=== PATIENT | female | born 1975 | race Caucasian/White ===

== ENCOUNTER 2018-08-01 17:49 | Emergency (ER) | payer SELFPAY ==
[~2018-08-01] VITALS: Ht 144.8 cm; Wt 79.8 kg
[~2018-08-01 17:49] MED LIST: DOCU240C31 PO; FERR325T18 PO; IBUP-1222 PO; OXYC-302 PO; PREN1TAB62 PO; SIME125C67 PO; ZOLP-413 PO
[2018-08-01] MEDS ORDERED: DIPHENHYDRAMINE 50 MG/ML, 1ML ONE (18:15)
[2018-08-01] MEDS ORDERED: DEXAMETHASONE 4 MG/ML, 1ML ONE (18:15)
[2018-08-01] MEDS ORDERED: METOCLOPRAMIDE 5 MG/ML, 2ML ONE (18:15)
[2018-08-01] MEDS ORDERED: KETOROLAC 30 MG/1 ML ONE (18:15)
[2018-08-01] MEDS ORDERED: KETOROLAC 30 MG/1 ML IVPush ONE (18:30)
[2018-08-01] MEDS ORDERED: DIPHENHYDRAMINE 50 MG/ML, 1ML IVPush ONE (18:30)
[2018-08-01] MEDS ORDERED: DEXAMETHASONE 4 MG/ML, 1ML IVPush ONE (18:30)
[2018-08-01] MEDS ORDERED: METOCLOPRAMIDE 5 MG/ML, 2ML IVPush ONE (18:30)
[2018-08-01] MEDS ORDERED: SODIUM CHLORIDE FLUSH 10ML SYR IVF ONE (18:30)
--- NOTE | 2018-08-01 19:04 | NUR ---
FLOAT RN: PT RESTING IN ROOM. VS STABLE. NO ACUTE DISTRESS NOTED. WILL CONTINUE TO MONITOR WHILE PRIMARY RN IS ON BREAK.
--- NOTE | 2018-08-01 19:20 | NUR ---
DR MARIO HAS UPDATED PATIENT.
[2018-08-01 19:39] VITALS: BP 124/74
== END 2018-08-01 19:42 | disposition home or self-care (01) ==
LOC: ED 18:40
DX: G43.909 Migraine, unspecified, not intractable, without status migrainosus (principal); G51.0 Bell's palsy; H60.12 Cellulitis of left external ear
CPT/HCPCS: 96374; 96375; 99283; J1100; J1200; J1885; J2765

== ENCOUNTER 2021-04-13 16:21 | Emergency (ER) | payer MEDICAID, OTHER ==
[~2021-04-13] VITALS: Ht 144.8 cm; Wt 83.0 kg
[~2021-04-13 16:21] MED LIST changes: -OXYC-302 PO; +OXYC1TAB12 PO
--- NOTE | 2021-04-13 16:27 | NUR ---
CAREER SERVICES COORDINATOR: PT CALLED FOR TRIAGE "SHE WENT TO HER CAR FOR WATER"
--- NOTE | 2021-04-13 16:32 | NUR ---
EKG COMPLETED IN TRIAGE
--- NOTE | 2021-04-13 16:45 | NUR ---
FIRST CONTACT: "SINCE YESTERDAY, FELT LIKE HEART BEATING FAST, I WENT TO WORK, I STILL HAVE IT AND I GOT SHAKY AND I GOT A GUPTA NOW. A WEEK AGO I HAD A COLD" HAD COVID TEST ON (NEGATIVIE). PT ATTACHED TO MONITORS VSS, PT ANXIOUS +VACCINE
[2021-04-13] MEDS ORDERED: LORazepam 1MG TABLET ONE (17:17)
[2021-04-13] MEDS ORDERED: LORazepam 1MG TABLET PO ONE (17:30)
[2021-04-13 17:56] LABS: BASOPHILS % (AUTO) 0 % (0-1); EOSINOPHILS % (AUTO) 2 % (1-7); LYMPHOCYTES % (AUTO) 28 % (22-44); MEAN CORPUSCULAR HGB CONC 32.4 g/dL (32.4-35.8); MEAN PLATELET VOLUME 7.1 fL (7.4-10.4); MONOCYTES % (AUTO) 7 % (2-9); NEUTROPHILS % (AUTO) 63 % (42-75); PLATELET COUNT 396 x10^3/uL (130-400); RED BLOOD COUNT 4.57 x10^6/uL (3.82-5.3); RED CELL DISTRIBUTION WIDTH 16.6 % (9.6-15.2)
[2021-04-13 18:00] LABS: ALBUMIN 3.1 g/dL (3.4-5.0); ANION GAP 3 mmol/L (5-15); CHLORIDE 105 mmol/L (98-107); CREATININE 0.56 mg/dL (0.55-1.02)
[2021-04-13 18:10] LABS: FREE T4 (FREE THYROXINE) 1.12 ng/dL (0.76-1.46); TROPONIN I < 0.015 ng/mL (0.000-0.045)
[2021-04-13 18:22] VITALS: BP 129/69
--- NOTE | 2021-04-13 18:43 | NUR ---
Patient given discharge instructions and they have confirmed that they understand the instructions. Patient ambulatory with steady gait. NAD, all questions answered appropriately, denies additional needs at this time. No personal belongings left in room after discharge.
== END 2021-04-13 18:45 | disposition home or self-care (01) ==
LOC: ED 16:26
DX: R00.2 Palpitations (principal); F41.1 Generalized anxiety disorder; R07.9 Chest pain, unspecified; R00.0 Tachycardia, unspecified; G43.909 Migraine, unspecified, not intractable, without status migrainosus
CPT/HCPCS: 36415; 71045; 80048; 82040; 84439; 84443; 84484; 85025; 93005; 99284; 99285